=== PATIENT | female | born 1985 | race Caucasian/White ===

== ENCOUNTER 2017-02-07 16:15 | Emergency (ER) | payer OTHER ==
--- NOTE | 2017-02-07 17:58 | ED NURSING NOTES ---
Clinical Report - Nurses [facility] [address] [place] [address] 02/07/2017 16:16 Patient: MITCHELL DUARTE TRIAGE Triage time 16:Feb 07 2017. Acuity: LEVEL 3. Chief Complaint: NAUSEA and VOMITING. 16:27 02/07/17. Alert. SEPSIS SCREEN: Sepsis Screen. Negative (no infection suspected/documented). OSITO COMA SCORE: Osito Coma Scale: 15- eyes open spontaneously (4); best verbal response- oriented x 4 (5); best motor response- obeys commands (6). --16:27 Monse Moreno 16:16 02/07/17. BP: 138/93. HR: 90. RR: 16. O2 saturation: 97% on room air. Temp: 98.6 F (oral). Pain level now: 06/11. Additional comments: Pain in head. --16:27 Monse Moreno. Weight: 99.7 kg stated. Height/Length: 69 inches Per Patient. BMI: 32.5. --16:21 Monse Moreno. Medications Effexor XR Oral. --16:18 Monse Moreno. Medication/allergy information source: EMS. --16:27 Monse Moreno. Allergies None. --16:18 Monse Moreno. History Arrived by EMS. Historian: EMS and patient. Accompanied by (EMS). Primary physician ([facility]). This started today. Onset. (This AM). ( Patient reports nausea and vomiting starting this AM. Last drink last night. Denies hallucinations. Reports feeling shaky. Denies history of seizures, has been through withdrawal before. Went to detox in December.). The patient has had nausea and vomiting. The patient has had diarrhea. This has occurred only once. No constipation or abdominal pain. Treatment LITHOGRAPHIC PRESS OPERATOR APPRENTICE: None. EMS treatment LITHOGRAPHIC PRESS OPERATOR APPRENTICE verbally communicated. Finger stick glucose performed (67). BP: 158/100. HR: 98. RR: 14. O2 saturation: 97 % room air. ( Pt woke up with N/V. Last drink last night (6 tall beers). Hasn't been able to keep fluids down. History of alcohol abuse.). PAST MEDICAL HX: Immunizations: up-to-date. SOCIAL HX: Light tobacco smoker (cigarette)- less than 1/2 a pack per day. Alcohol use; consumes six beers a day. History of heavy drug use: marijuana. No recent travel. No known contact with a sick individual. NUTRITIONAL RISK ASSESSMENT: The nutritional risk assessment revealed no deficiencies. FUNCTIONAL ASSESSMENT: Functional assessment: no impairments noted. LEARNING NEEDS ASSESSMENT: The learning needs assessment revealed no barriers. FALL RISK ASSESSMENT: Fall risk assessment completed. Risk factors identified include nausea and dizziness. Fall interventions initiated. Patient placed on stretcher. Side rails up x2. Brakes on Bed in low position. Call light in reach of patient. Instructed not to get up without assistance. SKIN INTEGRITY ASSESSMENT: Skin integrity risk assessment completed. No skin integrity risk identified. --16:27 Monse Moreno. PROBLEMS: Anxiety Reaction. --16:18 Monse Moreno. Assessment The patient states feels the same. --16:27 Monse Moreno. Interventions ID band on patient. --16:27 Monse Moreno. PHYSICAL ASSESSMENT 16:28 02/07/17. To room via stretcher. GENERAL / NEURO / PSYCH: Alert. Oriented X 4. Appears anxious. HEENT: Mucous membranes are pink. RESPIRATORY: Respirations not labored. CVS: Capillary refill less than 2 seconds. GI / : Abdomen soft and nontender. Stool color normal. SKIN: Skin is warm. Skin is profusely diaphoretic. --16:28 Monse Moreno. NURSING PROGRESS NOTES 16:27 02/07/2017 Site #1 started via IV in the right antecubital space with an 20g angiocath, with aseptic technique and good blood return; one attempt. Blood drawn: rainbow set. Labeled in the presence of the patient and sent to the lab. Saline lock flushed with 10 mL saline (Done by Tyrell Phillips). --16:32 Monse Moreno 16:30 02/07/2017 Started bag #1 1000 mL IV Fluids IV NS (Saline); at 1000 mL/hr over 1 hour(s) via site #1 via IV pump. Allergies verified and confirmed 5 rights. IV patency established. IV site checked: no pain, redness, or swelling. IV flushed thoroughly pre- and post-medication administration. --16:33 Monse Mroeno 16:30 02/07/17. The plan of care for this patient has been created. alarm security or surveillance monitor, pulse oximeter and NIBP monitor placed on patient; monitor alarms on. Head of bed elevated. Reassurance given. Call light placed in reach. Side rails up x 2. Bed placed in lowest position. Brakes of bed on. Patient ready for evaluation- chart flagged and ED physician and LOW PRESSURE BOILER TENDER notified. --16:30 Monse Moreno 16:31 02/07/17. Two patient identifiers checked. --16:31 Monse Moreno 16:32 02/07/2017 Zofran (Ondansetron HCl) IVP 4 mg given over 1 minute(s) via site #1. IV patency established. IV site checked: no pain, redness, or swelling. IV flushed thoroughly pre- and post-medication administration. IVP given by RN (Given by ANNAMARIE Phillips). --16:34 Monse Moreno 17:21 02/07/17. BP: 127/83. HR: 78. O2 saturation: 98%. --17:21 Monse Moreno 17:35 02/07/2017 IV Fluids IV NS Discontinued: bag #1 completed upon discharge. Total amount infused: 1000 mL. IV patency established. IV site checked: no pain, redness, or swelling. IV flushed thoroughly. --18:35 Summer Maza R.N. 18:20 02/07/2017 Site #1 removed upon discharge. Catheter intact. Pressure dressing applied. --18:33 Summer Maza R.N. 18:00. Reassessment after fluids administered and medication administered. She reports no complaints and she is resting quietly. Overall patient status is improved- she states feels better. GI / : Denies abdominal pain, nausea or vomiting. --18:48 Summer Maza R.N. patient given ice chips 18:10. --18:49 Summer Maza R.N. 18:20 02/07/17. Pain level now: 0/10. --18:50 Summer Maza R.N. DISPOSITION / DISCHARGE Condition at departure: improved. ( vomiting and abd pain absent). Discharge instructions provided and reviewed with the patient. Reviewed medication(s) dosing and course information. Prescription(s) given to the patient (nixon celestin). Activity restrictions reviewed (do not return to work today). Work and school note given. Patient verbalized understanding. Written instructions provided in Vietnamese. The patient was discharged home. She left the Emergency Department ambulatory and via private vehicle. Cartridge Assembler driving (patiet d/c to waiting area to call friend for ride). --18:39 Summer Maza R.N. 18:20 02/07/17. BP: 140/86. HR: 79. RR: 18. O2 saturation: 99% on room air. Temp: 98.3 F (oral). --18:39 Summer Maza R.N. Departure time: 1821. --18:40 Summer Maza R.N. Locked/Released at 02/07/2017 18:53 by Summer Maza R.N.
--- NOTE | 2017-02-07 17:58 | ED ORDER SUMMARY ---
..... Patient: MITCHELL DUARTE OrderSheet [facility] VisitID: [id number] [place] [address] 31y, F Registration Date/Time: 02/07/2017 ORDER SHEET Weight: 99.7 kg (stated) Allergies: None GENERAL ORDERS: CBC w Diff Urgent (17:00 02/07/2017 HBivens A.R.N.P.) (Ack 17:03 OHernandez) (17:17 ASchmuck) CMP Urgent (17:00 02/07/2017 HBivens A.R.N.P.) (Ack 17:03 OHernandez) (17:17 ASchmuck) UA-Culture if indicated Urgent (17:00 02/07/2017 HBivens A.R.N.P.) (Ack 17:03 OHernandez) (17:05 OHernandez) Amylase Urgent (17:00 02/07/2017 HBivens A.R.N.P.) (Ack 17:03 OHernandez) (17:17 ASchmuck) Lipase Urgent (17:00 02/07/2017 HBivens A.R.N.P.) (Ack 17:03 OHernandez) (17:17 ASchmuck) Ethyl Alcohol Urgent (17:00 02/07/2017 HBivens A.R.N.P.) (Ack 17:04 OHernandez) (17:17 ASchmuck) Serum Qualitative Urgent (17:00 02/07/2017 HBivens A.R.N.P.) (Ack 17:03 OHernandez) (17:17 ASchmuck) MEDICATION ORDERS: IV FLUIDS: Zofran IV 4 mg (NOW) (16:29 02/07/2017 ASchmuck per protocol) (16:34 ASchmuck) IV NS with Normal Saline 1 Liter: initial bolus none -, then 1000 mL/hr for X1 (NOW); Everardo (16:32 02/07/2017 ASchm verbal order read back to HBivens A.R.N.P.) (16:33 ASchmuck) ORDER SHEET NOTES: [Electronically signed by Summer Maza R.N. (18:53 02/07/2017)] [Electronically signed by Rosaura Dunaway (21:51 02/07/2017)] [Electronically locked/signed by Summer Maza R.N. (18:53 02/07/2017)]
--- NOTE | 2017-02-07 17:58 | ED ORDER SUMMARY ---
..... Patient: MITCHELL DUARTE OrderSheet [facility] VisitID: [id number] [place] [address] 31y, F Registration Date/Time: 02/07/2017 ORDER SHEET Weight: 99.7 kg (stated) Allergies: None GENERAL ORDERS: CBC w Diff Urgent (17:00 02/07/2017 HBivens A.R.N.P.) (Ack 17:03 OHernandez) (17:17 ASchmuck) CMP Urgent (17:00 02/07/2017 HBivens A.R.N.P.) (Ack 17:03 OHernandez) (17:17 ASchmuck) UA-Culture if indicated Urgent (17:00 02/07/2017 HBivens A.R.N.P.) (Ack 17:03 OHernandez) (17:05 OHernandez) Amylase Urgent (17:00 02/07/2017 HBivens A.R.N.P.) (Ack 17:03 OHernandez) (17:17 ASchmuck) Lipase Urgent (17:00 02/07/2017 HBivens A.R.N.P.) (Ack 17:03 OHernandez) (17:17 ASchmuck) Ethyl Alcohol Urgent (17:00 02/07/2017 HBivens A.R.N.P.) (Ack 17:04 OHernandez) (17:17 ASchmuck) Serum Qualitative Urgent (17:00 02/07/2017 HBivens A.R.N.P.) (Ack 17:03 OHernandez) (17:17 ASchmuck) MEDICATION ORDERS: IV FLUIDS: Zofran IV 4 mg (NOW) (16:29 02/07/2017 ASchmuck per protocol) (16:34 ASchmuck) IV NS with Normal Saline 1 Liter: initial bolus none -, then 1000 mL/hr for X1 (NOW); Everardo (16:32 02/07/2017 ASchm verbal order read back to HBivens A.R.N.P.) (16:33 ASchmuck) ORDER SHEET NOTES: [Electronically signed by Summer Maza R.N. (18:53 02/07/2017)] [Electronically signed by Rosaura Dunaway (21:51 02/07/2017)] [Electronically locked/signed by Summer Maza R.N. (18:53 02/07/2017)]
--- NOTE | 2017-02-07 17:58 | ED CLINICAL REPORT ---
Clinical Report - Physicians/Mid Levels [facility] [address] [place] [address] 02/07/2017 16:16 Patient: MITCHELL DUARTE Time Seen: 16:27; initial patient contact, initial documentation, patient care assumed. Arrived- By ambulance. Historian- patient. HISTORY OF PRESENT ILLNESS Chief Complaint: VOMITING. This started today. No recent travel. She has had nausea. She has had severe vomiting. The vomiting has occurred numerous times and has been bilious. No feculent emesis, blood-tinged emesis, coffee-grounds emesis, frankly bloody emesis or unusually dark emesis. She has had diarrhea. This has occurred numerous times. It has been watery. No bloody, mucous containing or blood-tinged diarrhea. No black stools, bloody stools, abdominal pain, constipation or flank pain. No history of possible bad food exposure, known contact with a sick individual or change in routine. Has not recently been camping or on antibiotics. The illness is described as moderate. Similar symptoms previously: None. Recent medical care: Not recently seen/assessed. REVIEW OF SYSTEMS No fever, difficulty with urination, dark urine, chest pain or difficulty breathing. Denies current . All systems otherwise negative, except as recorded above. PAST HISTORY See nurses notes. PROBLEMS: Anxiety Reaction. --16:18 Monse Moreno. Alcoholism. SOCIAL HISTORY Light tobacco smoker. Heavy alcohol use; consumes five beers a day. Under the influence in E[place]D. No drug use. No recent travel. Is a local resident. FAMILY HISTORY Negative. ADDITIONAL NOTES The nursing notes have been reviewed with agreement regarding the chief complaint, HPI, ROS, PMH and patient medications and allergies. PHYSICAL EXAM Vital Signs: 02/07/2017 16:16 BP: 138/93. HR: 90. RR: 16. O2 saturation: 97%. Temp: 98.6 F. Pain level now: 10/10. Have been reviewed as normal and appear to be correct. Appearance: Alert. Oriented X3. No acute distress. Anxious. Eyes: Pupils equal, round and reactive to light. Eyes normal inspection. ENT: Nose normal. Pharynx normal. Neck: Normal inspection. Neck supple. CVS: Normal heart rate and rhythm. Heart sounds normal. Pulses normal. Respiratory: No respiratory distress. Breath sounds normal. Abdomen: Soft and nontender. Bowel sounds normal. No organomegaly. No mass. Mildly obese. Back: Normal inspection. Skin: Skin warm but moist. Normal skin color. No rash. Normal skin turgor. Profuse diaphoresis. Extremities: Extremities exhibit normal ROM. No lower extremity edema. Neuro: Oriented X 3. No motor deficit. No sensory deficit. LABS, X-RAYS, AND EKG Laboratory Tests: UA-Culture if indicated: (ANNABELLE: 02/07/2017 16:40) ( [facility] [place] [place] 02/07/2017 17:41) Final results Test Result Flag Units (Reference) URINE COLOR YELLOW URINE APPEARANCE CLEAR URINE GLUCOSE NEGATIVE (NEGATIVE) URINE BILIRUBIN 1+ (NEGATIVE) URINE BILIRUBIN ICTOTEST NEG (NEGATIVE) URINE KETONE 1+ (NEGATIVE) URINE SPECIFIC GRAVITY 1.025 (1.010-1.030) URINE PH 6.0 (5.0-8.0) URINE PROTEIN 1+ (NEGATIVE) URINE UROBILINOGEN 0.2 EU/dL (0.2-1.0) URINE NITRITE NEGATIVE (NEGATIVE) URINE BLOOD NEGATIVE (NEGATIVE) URINE LEUK ESTERASE NEGATIVE (NEGATIVE) URINE RBC 0-1 rbc/hpf (0-1) URINE WBC 0-1 wbc/hpf (0-1) URINE EPITHELIAL CELLS 1-3 EPI/hpf (0-5) URINE BACTERIA NONE SEEN (NONE SEEN) URINE COMMENT CULT NOT INDICATED URINE CULTURES ARE SET-UP BASED ON THE FOLLOWING CRITERIA:POSITIVE NITRITEPOSITIVE LEUKOCYTE ESTERASEGREATER THAN 10 WHITE BLOOD CELLSMODERATE (2+) OR GREATER BACTERIA Serum Qualitative: (ANNABELLE: 02/07/2017 16:32) ( [facility] [place] [place] 02/07/2017 17:24) Final results Test Result Flag Units (Reference) , SERUM NEGATIVE CBC w Diff: (ANNABELLE: 02/07/2017 16:32) ( [facility] 02/07/2017 17:15) Final results Test Result Flag Units (Reference) WHITE BLOOD COUNT 11.9 H K/uL (4.5-11.5) RED BLOOD COUNT 4.85 M/uL (4.00-5.20) HEMOGLOBIN 13.4 gm/dL (12.0-16.0) HEMATOCRIT 40.2 % (36.0-46.0) MEAN CELL VOLUME 83 fL (80-100) MEAN CORPUSCULAR HGB 28 pg (26-34) MEAN CORPUSCULAR HGB CONC 33 g/dL (31-37) RED CELL DISTRIBUTION WIDTH 13.5 % (11.6-14.8) PLATELET COUNT 203 K/uL (150-400) NEUTROPHIL % 82.6 H % (50-75) LYMPH % 10.2 L % (25-40) MONO % 5.4 % (3-14) EOSINOPHIL % 1.6 % (0-4) BASOPHIL % 0.2 % (0-2) CMP: (ANNABELLE: 02/07/2017 16:32) ( MsgRcvd 02/07/2017 17:41) Final results Test Result Flag Units (Reference) GLUCOSE 99 mg/dL (70-110) BUN 8 mg/dL (7-18) CREATININE 0.6 mg/dL (0.6-1.3) Estimated GFR >60 mL/min Estimated GFR- >60 mL/min Note: Persistent reduction over 3 months in eGFR<60 mL/min/1.73 m2 defines CKD. Patients with eGFR values>=60 mL/min/1.73 m2 may also have CKD if evidence ofpersistent proteinuria. Additional information may be foundat www.kidney.org. SODIUM 141 mmol/L (136-145) POTASSIUM 3.4 L mmol/L (3.5-5.1) CHLORIDE 103 mmol/L (98-107) CARBON DIOXIDE 23 mmol/L (21-32) CALCIUM 8.8 mg/dL (8.5-10.1) TOTAL PROTEIN 9.5 H g/dL (6.4-8.2) ALBUMIN 4.0 g/dL (3.3-5.0) BILIRUBIN, TOTAL 0.7 mg/dL (0.0-1.0) ALKALINE PHOSPHATASE 140 H U/L (46-116) AST (SGOT) 124 H U/L (15-37) ALT (SGPT) 103 H U/L (12-78) LIPASE 184 U/L (73-393) AMYLASE 52 U/L (25-115) ETHYL ALCOHOL <3 L mg/dL (3-10) . PROGRESS AND PROCEDURES Course of Care: 1743. pt smiling, no more diaphoresis, and stating she felt much better, discussed elevated liver enzymes and affect on liver with drinking, encouraged her to f/u and keep eye on liver. 02/07/2017 17:21 BP: 127/83. HR: 78. O2 saturation: 98%. Vital Signs: have been reviewed as normal and appear to be correct. Patient counseled in person regarding the patient's stable condition, test results and diagnosis. 17:43. Differential Diagnosis: I considered gastritis, peptic ulcer disease, gastroesophageal reflux disease, gastroparesis, Crohn's disease, small bowel obstruction, colonic obstruction, colon cancer, gastroenteritis, cholecystitis, pancreatitis, viral syndrome, enterocolitis, urinary tract infection, hepatitis, sepsis, drugs and as a possible cause of vomiting in this patient. This is a partial list of diagnoses considered. (alcohol abuse). Above considerations are based on history, physical exam, reassessment and laboratory data. Differential diagnosis was discussed with patient. Disposition: Discharged home in good and improved condition (17:58). Condition: good and stable. CLINICAL IMPRESSION Acute noninfectious gastroenteritis. INSTRUCTIONS Do not work today, tomorrow. Take clear liquids only (frequent sips) for the next 12 hours until better. May continue medications with sips only. Advance diet as tolerated. Avoid. No alcohol. Warnings: Further evaluation is necessary in order to recheck abnormal lab. It is very important to follow up with a physician. GENERAL WARNINGS: Return or contact your physician immediately if your condition worsens or changes unexpectedly, if not improving as expected, or if other problems arise. SPECIFICALLY, return if you develop pain in the abdomen or pelvis, fever, the inability to keep fluids down, blood in vomitus, blood in diarrhea, fainting or lightheadedness. Prescription Medications: Zofran 4 mg: Take 1 orally every six hours as needed for nausea/vomiting. Dispense ten (10). No refills. Substitution is permissible. Bentyl 20 mg tablets: take 1 orally every 6 hours as needed. Dispense thirty (30). No refills. Substitution is permissible. Follow-up: Follow up with your doctor in about two days even if well. Call for an appointment. Summary of care provided to patient. Understanding of the discharge instructions verbalized by patient. (Electronically signed by Rosaura Dunaway A.R.N.P. 02/07/2017 21:51)
--- NOTE | 2017-02-07 17:58 | ED NURSING NOTES ---
Clinical Report - Nurses [facility] [address] [place] [address] 02/07/2017 16:16 Patient: MITCHELL DUARTE TRIAGE Triage time 16:Feb 07 2017. Acuity: LEVEL 3. Chief Complaint: NAUSEA and VOMITING. 16:27 02/07/17. Alert. SEPSIS SCREEN: Sepsis Screen. Negative (no infection suspected/documented). OSITO COMA SCORE: Osito Coma Scale: 15- eyes open spontaneously (4); best verbal response- oriented x 4 (5); best motor response- obeys commands (6). --16:27 Monse Moreno 16:16 02/07/17. BP: 138/93. HR: 90. RR: 16. O2 saturation: 97% on room air. Temp: 98.6 F (oral). Pain level now: 06/11. Additional comments: Pain in head. --16:27 Monse Moreno. Weight: 99.7 kg stated. Height/Length: 69 inches Per Patient. BMI: 32.5. --16:21 Monse Moreno. Medications Effexor XR Oral. --16:18 Monse Moreno. Medication/allergy information source: EMS. --16:27 Monse Moreno. Allergies None. --16:18 Monse Moreno. History Arrived by EMS. Historian: EMS and patient. Accompanied by (EMS). Primary physician ([facility]). This started today. Onset. (This AM). ( Patient reports nausea and vomiting starting this AM. Last drink last night. Denies hallucinations. Reports feeling shaky. Denies history of seizures, has been through withdrawal before. Went to detox in December.). The patient has had nausea and vomiting. The patient has had diarrhea. This has occurred only once. No constipation or abdominal pain. Treatment EPIC AMBULATORY ANALYSTS: None. EMS treatment EPIC AMBULATORY ANALYSTS verbally communicated. Finger stick glucose performed (67). BP: 158/100. HR: 98. RR: 14. O2 saturation: 97 % room air. ( Pt woke up with N/V. Last drink last night (6 tall beers). Hasn't been able to keep fluids down. History of alcohol abuse.). PAST MEDICAL HX: Immunizations: up-to-date. SOCIAL HX: Light tobacco smoker (cigarette)- less than 1/2 a pack per day. Alcohol use; consumes six beers a day. History of heavy drug use: marijuana. No recent travel. No known contact with a sick individual. NUTRITIONAL RISK ASSESSMENT: The nutritional risk assessment revealed no deficiencies. FUNCTIONAL ASSESSMENT: Functional assessment: no impairments noted. LEARNING NEEDS ASSESSMENT: The learning needs assessment revealed no barriers. FALL RISK ASSESSMENT: Fall risk assessment completed. Risk factors identified include nausea and dizziness. Fall interventions initiated. Patient placed on stretcher. Side rails up x2. Brakes on Bed in low position. Call light in reach of patient. Instructed not to get up without assistance. SKIN INTEGRITY ASSESSMENT: Skin integrity risk assessment completed. No skin integrity risk identified. --16:27 Monse Moreno. PROBLEMS: Anxiety Reaction. --16:18 Monse Moreno. Assessment The patient states feels the same. --16:27 Monse Moreno. Interventions ID band on patient. --16:27 Monse Moreno. PHYSICAL ASSESSMENT 16:28 02/07/17. To room via stretcher. GENERAL / NEURO / PSYCH: Alert. Oriented X 4. Appears anxious. HEENT: Mucous membranes are pink. RESPIRATORY: Respirations not labored. CVS: Capillary refill less than 2 seconds. GI / : Abdomen soft and nontender. Stool color normal. SKIN: Skin is warm. Skin is profusely diaphoretic. --16:28 Monse Moreno. NURSING PROGRESS NOTES 16:27 02/07/2017 Site #1 started via IV in the right antecubital space with an 20g angiocath, with aseptic technique and good blood return; one attempt. Blood drawn: rainbow set. Labeled in the presence of the patient and sent to the lab. Saline lock flushed with 10 mL saline (Done by Tyrell Phillips). --16:32 Monse Moreno 16:30 02/07/2017 Started bag #1 1000 mL IV Fluids IV NS (Saline); at 1000 mL/hr over 1 hour(s) via site #1 via IV pump. Allergies verified and confirmed 5 rights. IV patency established. IV site checked: no pain, redness, or swelling. IV flushed thoroughly pre- and post-medication administration. --16:33 Monse Moreno 16:30 02/07/17. The plan of care for this patient has been created. cafeteria monitor, pulse oximeter and NIBP monitor placed on patient; monitor alarms on. Head of bed elevated. Reassurance given. Call light placed in reach. Side rails up x 2. Bed placed in lowest position. Brakes of bed on. Patient ready for evaluation- chart flagged and ED physician and GATE MANAGER notified. --16:30 Monse Moreno 16:31 02/07/17. Two patient identifiers checked. --16:31 Monse Moreno 16:32 02/07/2017 Zofran (Ondansetron HCl) IVP 4 mg given over 1 minute(s) via site #1. IV patency established. IV site checked: no pain, redness, or swelling. IV flushed thoroughly pre- and post-medication administration. IVP given by RN (Given by ANNAMARIE Phillips). --16:34 Monse Moreno 17:21 02/07/17. BP: 127/83. HR: 78. O2 saturation: 98%. --17:21 Monse Moreno 17:35 02/07/2017 IV Fluids IV NS Discontinued: bag #1 completed upon discharge. Total amount infused: 1000 mL. IV patency established. IV site checked: no pain, redness, or swelling. IV flushed thoroughly. --18:35 Summer Maza R.N. 18:20 02/07/2017 Site #1 removed upon discharge. Catheter intact. Pressure dressing applied. --18:33 Summer Maza R.N. 18:00. Reassessment after fluids administered and medication administered. She reports no complaints and she is resting quietly. Overall patient status is improved- she states feels better. GI / : Denies abdominal pain, nausea or vomiting. --18:48 Summer Maza R.N. patient given ice chips 18:10. --18:49 Summer Maza R.N. 18:20 02/07/17. Pain level now: 0/10. --18:50 Summer Maza R.N. DISPOSITION / DISCHARGE Condition at departure: improved. ( vomiting and abd pain absent). Discharge instructions provided and reviewed with the patient. Reviewed medication(s) dosing and course information. Prescription(s) given to the patient (nixon celestin). Activity restrictions reviewed (do not return to work today). Work and school note given. Patient verbalized understanding. Written instructions provided in Bengali. The patient was discharged home. She left the Emergency Department ambulatory and via private vehicle. Binder Folder Operator driving (patiet d/c to waiting area to call friend for ride). --18:39 Summer Maza R.N. 18:20 02/07/17. BP: 140/86. HR: 79. RR: 18. O2 saturation: 99% on room air. Temp: 98.3 F (oral). --18:39 Summer Maza R.N. Departure time: 1821. --18:40 Summer Maza R.N. Locked/Released at 02/07/2017 18:53 by Summer Maza R.N.
--- NOTE | 2017-02-07 21:51 | ED MAR SUMMARY ---
..... Medication Administration Record [facility] [address] [place] [address] Patient: MITCHELL DUARTE Visit ID: [id number] 31y, F Weight: 99.7 kg Height/Length: 69 in BMI: 32.5 ALLERGIES: None Start 16:30 02/07/2017 Monse Moreno,, Stop 17:35 02/07/2017 Summer Maza R.N. Medication Administered: IV NS (SALINE), Dose: IV Fluids over 1 hour(s), Rate: 1000 mL/hr, Dispensed: 1000 mL bag, Site: #1 right AC. Medication Ordered: IV NS with Normal Saline 1 Liter: initial bolus none -, then 1000 mL/hr for X1 (NOW); Everardo. Given 16:32 02/07/2017 Monse Moreno, Medication Administered: ZOFRAN [IVP] (ONDANSETRON HCL), Dose: 4 mg IVP over 1 minute(s), Site: #1 right AC. Medication Ordered: Zofran IV 4 mg (NOW).
--- NOTE | 2017-02-07 21:51 | ED MAR SUMMARY ---
..... Medication Administration Record [facility] [address] [place] [address] Patient: MITCHELL DUARTE Visit ID: [id number] 31y, F Weight: 99.7 kg Height/Length: 69 in BMI: 32.5 ALLERGIES: None Start 16:30 02/07/2017 Monse Moreno,, Stop 17:35 02/07/2017 Summer Maza R.N. Medication Administered: IV NS (SALINE), Dose: IV Fluids over 1 hour(s), Rate: 1000 mL/hr, Dispensed: 1000 mL bag, Site: #1 right AC. Medication Ordered: IV NS with Normal Saline 1 Liter: initial bolus none -, then 1000 mL/hr for X1 (NOW); Everardo. Given 16:32 02/07/2017 Monse Moreno, Medication Administered: ZOFRAN [IVP] (ONDANSETRON HCL), Dose: 4 mg IVP over 1 minute(s), Site: #1 right AC. Medication Ordered: Zofran IV 4 mg (NOW).
--- NOTE | 2017-02-07 21:51 | ED MED RECONCILIATION SUMMARY ---
Patient: MITCHELL DUARTE Medication Reconciliation Report [facility] VisitID: [id number] [address] [place] [address] 31y, F Registration Date/Time: 02/07/2017 Weight: 99.7 kg Height/Length: 69 in. BMI: 32.5 ALLERGIES: None The patient's Home Medications are listed below: THE FOLLOWING MEDICATIONS NEED TO BE RECONCILED: Effexor XR Oral The source(s) of the original Home Medication information: EMS The following Medications were given to the patient in the Emergency Department: IV NS IV Fluids bolus 0, then 1000 mL/hr, administered: 02/07/2017 4:30:00 PM Zofran [IVP] IVP 4 mg, administered: 02/07/2017 4:32:00 PM The following Medications were prescribed to the patient: Zofran 4 mg: Take 1 orally every six hours as needed for nausea/vomiting. Dispense ten (10). No refills. Substitution is permissible. -- Rosaura Dunaway A.RConchaN.PConcha Bentyl 20 mg tablets: take 1 orally every 6 hours as needed. Dispense thirty (30). No refills. Substitution is permissible. -- Rosaura Dunaway A.R.N.P.
--- NOTE | 2017-02-07 21:51 | ED MED RECONCILIATION SUMMARY ---
Patient: MITCHELL DUARTE Medication Reconciliation Report [facility] VisitID: [id number] [address] [place] [address] 31y, F Registration Date/Time: 02/07/2017 Weight: 99.7 kg Height/Length: 69 in. BMI: 32.5 ALLERGIES: None The patient's Home Medications are listed below: THE FOLLOWING MEDICATIONS NEED TO BE RECONCILED: Effexor XR Oral The source(s) of the original Home Medication information: EMS The following Medications were given to the patient in the Emergency Department: IV NS IV Fluids bolus 0, then 1000 mL/hr, administered: 02/07/2017 4:30:00 PM Zofran [IVP] IVP 4 mg, administered: 02/07/2017 4:32:00 PM The following Medications were prescribed to the patient: Zofran 4 mg: Take 1 orally every six hours as needed for nausea/vomiting. Dispense ten (10). No refills. Substitution is permissible. -- Rosaura Dunaway A.RConchaN.PConcha Bentyl 20 mg tablets: take 1 orally every 6 hours as needed. Dispense thirty (30). No refills. Substitution is permissible. -- Rosaura Dunaway A.R.N.P.
--- NOTE | 2017-02-07 21:51 | ED DISCHARGE INSTRUCTIONS ---
Patient: MITCHELL DUARTE General Instructions [facility] VisitID: [id number] [place] [address] 31y, F Registration Date/Time: 02/07/2017 Acute noninfectious gastroenteritis. INSTRUCTIONS Do not work today, tomorrow. Take clear liquids only (frequent sips) for the next 12 hours until better. May continue medications with sips only. Advance diet as tolerated. Avoid. No alcohol. Warnings: Further evaluation is necessary in order to recheck abnormal lab. It is very important to follow up with a physician. GENERAL WARNINGS: Return or contact your physician immediately if your condition worsens or changes unexpectedly, if not improving as expected, or if other problems arise. SPECIFICALLY, return if you develop pain in the abdomen or pelvis, fever, the inability to keep fluids down, blood in vomitus, blood in diarrhea, fainting or lightheadedness. Prescription Medications: Zofran 4 mg: Take 1 orally every six hours as needed for nausea/vomiting. Dispense ten (10). No refills. Substitution is permissible. Bentyl 20 mg tablets: take 1 orally every 6 hours as needed. Dispense thirty (30). No refills. Substitution is permissible. Follow-up: Follow up with your doctor in about two days even if well. Call for an appointment. Summary of care provided to patient. Understanding of the discharge instructions verbalized by patient. ADDITIONAL INFORMATION Gastroenteritis [Non-Infectious, 6 Yr-Adult] Your symptoms today are coming from the intestinal tract. This may occur as a result of food sensitivity, inflammation of the GI tract, medicines, stress or other causes not related to infection. This may last from 1-3 days. Antibiotics are not effective, but simple home treatment will be helpful. Home Care: If symptoms are severe, rest at home for the next 24 hours. You may use acetaminophen (Tylenol) or ibuprofen (Motrin, Advil) to control fever, unless another medicine was prescribed. [NOTE: If you have chronic liver or kidney disease or ever had a stomach ulcer or GI bleeding, talk with your doctor before using these medicines.] (Aspirin should never be used in anyone under 18 years of age who is ill with a fever. It may cause severe liver damage.) Avoid tobacco and alcohol use, which may make your symptoms worse. If medicines for diarrhea or vomiting were prescribed, take only as directed. Once vomiting stops, then follow these guidelines: During The First 12-24 Hours follow the diet below: gingerale, mineral water (plain or flavored), decaffeinated tea and coffee. During The Next 24 Hours you may add the following to the above: DURING THE NEXT 24 HOURS Gradually resume a normal diet, as you feel better and your symptoms lessen. Follow Up with your doctor as advised if you are not improving over the next 2-3 days. If a stool (diarrhea) sample was taken, you may call in 2 days (or as directed) for the results. Get Prompt Medical Attention if any of the following occur: Increasing abdominal pain or constant lower right abdominal pain Continued vomiting (unable to keep liquids down) Frequent diarrhea (more than 5 times a day) Blood in vomit or stool (black or red color) Reduced oral intake Dark urine, reduced urine output Weakness, dizziness, fainting Drowsiness, confusion, stiff neck or seizure Fever of 100.4F (38C) or higher, or as directed by your healthcare provider New rash Clear Liquid Diet Clear liquids are any liquid that you can see through as well as those that are very easy to digest. This is used while the body is recovering from irritation or infection of the stomach or intestinal tract. It may also be used before special procedures or surgery. This diet is to be used no more than three days. You may include the following items. Adults Adults should drink a total of 23 quarts of liquid per day. It may be easier to drink small frequent servings rather than a few large ones. Liquids can include: Fruit juices.Strained orange juice or lemonade (no pulp), apple, grape and cranberry juice, clear fruit drinks, sports drinks Beverages.Sport drinks, sodas, mineral water (plain or flavored), tea, black coffee, liquid gelatin (add twice the recommended amount of water) Soups.Clear broth, consomm, bouillon Desserts.Plain gelatin, popsicles, fruit juice bars Children Over 2 years old The following liquids are acceptable for children over age 2: Fruit juices.Strained orange juice or lemonade (no pulp), apple, grape and cranberry juice, clear fruit drinks Beverages. Sports drinks, sodas, mineral water (plain or flavored), tea, liquid gelatin (add twice the recommended amount of water) Soups. Clear broth, consomm, bouillon Desserts. Plain gelatin, popsicles, fruit juice bars Children under 2 years old Oral rehydration fluids such are available at drug stores and most grocery stores without a prescription. [place] Diet A bland diet is used for patients with an upset stomach. It consists of foods that are mild and easy to digest. It is better to eat small frequent meals rather than three large meals a day. BEVERAGES OK: Fruit juices, non-caffeinated teas and coffee, non-carbonated kirkpatrick AVOID: Carbonated beverage, caffeinated tea and coffee, all alcoholic beverages BREAD OK: Refined white, wheat or rye bread, oriana or soda crackers, Jackelyn toast, plain rolls, bagels AVOID: Whole-grain bread CEREAL OK: Refined cereals: cooked or ready to eat AVOID: Whole grain cereals and granola, or those containing bran, seeds or nuts DESSERTS OK: Peanut butter and all others except those to "avoid" AVOID: Chocolate, cocoa, coconut, popcorn, nuts, seeds, jam, marmalade FRUITS OK: Canned, cooked, frozen or fresh fruits without seeds or tough skin AVOID: Olives, skin and seeds of fruit MEATS OK: All fresh or preserved meat, fish and fowl AVOID: Any that are prepared with those spices to "avoid" CHEESE & EGGS OK: Eggs, cottage cheese, cream cheese, other cheeses AVOID: All cheeses made with those spices to "avoid" POTATOES & PASTA OK: Potato, rice, macaroni, noodles, spaghetti AVOID: None SOUPS OK: All soups without heavy seasoning AVOID: Soups made with those spices to "avoid" VEGETABLES OK: Canned, cooked, fresh or frozen mildly flavored vegetables without seeds, skins or coarse fiber AVOID: Vegetables prepared with those spices to "avoid"; skin and seeds of vegetables and those with coarse fiber SPICES OK: Salt, lemon and [place] juice, vinegar, all extracts, marco antonio, cinnamon, thyme, mace, allspice, paprika AVOID: [place] powder, cloves, pepper, seed spices, garlic, gravy pickles, highly seasoned salad dressings Clear Liquid Diet Clear liquids are any liquid that you can see through as well as those that are very easy to digest. This is used while the body is recovering from irritation or infection of the stomach or intestinal tract. It may also be used before special procedures or surgery. This diet is to be used no more than three days. You may include the following items. Adults Adults should drink a total of 23 quarts of liquid per day. It may be easier to drink small frequent servings rather than a few large ones. Liquids can include: Fruit juices.Strained orange juice or lemonade (no pulp), apple, grape and cranberry juice, clear fruit drinks, sports drinks Beverages.Sport drinks, sodas, mineral water (plain or flavored), tea, black coffee, liquid gelatin (add twice the recommended amount of water) Soups.Clear broth, consomm, bouillon Desserts.Plain gelatin, popsicles, fruit juice bars Children Over 2 years old The following liquids are acceptable for children over age 2: Fruit juices.Strained orange juice or lemonade (no pulp), apple, grape and cranberry juice, clear fruit drinks Beverages. Sports drinks, sodas, mineral water (plain or flavored), tea, liquid gelatin (add twice the recommended amount of water) Soups. Clear broth, consomm, bouillon Desserts. Plain gelatin, popsicles, fruit juice bars Children under 2 years old Oral rehydration fluids such are available at drug stores and most grocery stores without a prescription. Ondansetron Oral disintegrating tablet What is this medicine? ONDANSETRON (on NEERAJ se nirmal) is used to treat nausea and vomiting caused by chemotherapy. It is also used to prevent or treat nausea and vomiting after surgery. How should I use this medicine? These tablets are made to dissolve in the mouth. Do not try to push the tablet through the foil backing. With dry hands, peel away the foil backing and gently remove the tablet. Place the tablet in the mouth and allow it to dissolve, then swallow. While you may take these tablets with water, it is not necessary to do so. Talk to your fixture repairer fabricator regarding the use of this medicine in children. Special care may be needed. What side effects may I notice from receiving this medicine? Side effects that you should report to your doctor or health personal care assistant as soon as possible: allergic reactions like skin rash, itching or hives, swelling of the face, lips, or tongue breathing problems dizziness fast or irregular heartbeat feeling faint or lightheaded, falls fever and chills swelling of the hands and feet tightness in the chest Side effects that usually do not require medical attention (report to your doctor or health personal care assistant if they continue or are bothersome): constipation or diarrhea headache What may interact with this medicine? Do not take this medicine with any of the following medications: -apomorphine -cisapride -dofetilide -dronedarone -pimozide -thioridazine -ziprasidone This medicine may also interact with the following medications: -carbamazepine -phenytoin -rifampicin -tramadol -other medicines that prolong the QT interval (cause an abnormal heart rhythm) What if I miss a dose? If you miss a dose, take it as soon as you can. If it is almost time for your next dose, take only that dose. Do not take double or extra doses. Where should I keep my medicine? Keep out of the reach of children. Store between 2 and 30 degrees C (36 and 86 degrees F). Throw away any unused medicine after the expiration date. What should I tell my health care provider before I take this medicine? They need to know if you have any of these conditions: heart disease history of irregular heartbeat liver disease low levels of magnesium or potassium in the blood an unusual or allergic reaction to ondansetron, granisetron, other medicines, foods, dyes, or preservatives or trying to get breast-feeding What should I watch for while using this medicine? Check with your doctor or health personal care assistant as soon as you can if you have any sign of an allergic reaction. Dicyclomine Hydrochloride Oral tablet What is this medicine? DICYCLOMINE (dye ISIDRO [place]) is used to treat bowel problems including irritable bowel syndrome. How should I use this medicine? Take this medicine by mouth with a glass of water. Follow the directions on the prescription label. It is best to take this medicine on an empty stomach, 30 minutes to 1 hour before meals. Take your medicine at regular intervals. Do not take your medicine more often than directed. Talk to your fixture repairer fabricator regarding the use of this medicine in children. Special care may be needed. While this drug may be prescribed for children as young as 6 months of age for selected conditions, precautions do apply. Patients over 65 years old may have a stronger reaction and need a smaller dose. What side effects may I notice from receiving this medicine? Side effects that you should report to your doctor or health personal care assistant as soon as possible: agitation, nervousness, confusion difficulty swallowing dizziness, drowsiness fast or slow heartbeat hallucinations pain or difficulty passing urine Side effects that usually do not require medical attention (report to your doctor or health personal care assistant if they continue or are bothersome): constipation headache nausea or vomiting sexual difficulty What may interact with this medicine? amantadine antacids benztropine digoxin disopyramide medicines for allergies, colds and breathing difficulties medicines for alzheimer's disease medicines for anxiety or sleeping problems medicines for depression or psychotic disturbances medicines for diarrhea medicines for pain metoclopramide tegaserod What if I miss a dose? If you miss a dose, take it as soon as you can. If it is almost time for your next dose, take only that dose. Do not take double or extra doses. Where should I keep my medicine? Keep out of the reach of children. Store at room temperature below 30 degrees C (86 degrees F). Protect from light. Throw away any unused medicine after the expiration date. What should I tell my health care provider before I take this medicine? They need to know if you have any of these conditions: difficulty passing urine esophagus problems or heartburn glaucoma heart disease, or previous heart attack myasthenia gravis prostate trouble stomach infection, or obstruction ulcerative colitis an unusual or allergic reaction to dicyclomine, other medicines, foods, dyes, or preservatives or trying to get breast-feeding What should I watch for while using this medicine? You may get drowsy, dizzy, or have blurred vision. Do not drive, use machinery, or do anything that needs mental alertness until you know how this medicine affects you. To reduce the risk of dizzy or fainting spells, do not sit or stand up quickly, especially if you are an older patient. Alcohol can make you more drowsy, avoid alcoholic drinks. Stay out of bright light and wear sunglasses if this medicine makes your eyes more sensitive to light. Avoid extreme heat (hot tubs, saunas). This medicine can cause you to sweat less than normal. Your body temperature could increase to dangerous levels, which may lead to heat stroke. Antacids can stop this medicine from working. If you get an upset stomach and want to take an antacid, make sure there is an interval of at least 1 to 2 hours before or after you take this medicine. Your mouth may get dry. Chewing sugarless gum or sucking hard candy, and drinking plenty of water may help. Contact your doctor if the problem does not go away or is severe. You have been given the following additional information: Gastroenteritis, Non-Infectious (Child) (Adult) Diet, Clear Liquid Diet, [place] (Adult) Diet, Clear Liquid Ondansetron Oral disintegrating tablet Dicyclomine Hydrochloride Oral tablet Do not work today, tomorrow. (Electronically signed by Rosaura Dunaway A.R.N.P. 02/07/2017 21:51)
== END 2017-02-07 18:22 | disposition home or self-care (01) ==
LOC: ED SRH 16:15
DX: K52.9 Noninfective gastroenteritis and colitis, unspecified (principal); Z79.899 Other long term (current) drug therapy; F17.210 Nicotine dependence, cigarettes, uncomplicated
CPT/HCPCS: 90004; 90100; 92010; 92235; 92530; 95059; 98428

== ENCOUNTER 2017-03-10 10:37 | Emergency (ER) | payer OTHER ==
--- NOTE | 2017-03-10 12:15 | ED CLINICAL REPORT ---
Clinical Report - Physicians/Mid Levels [facility] [address] [place] [address] 03/10/2017 10:38 Patient: MITCHELL DUARTE Time Seen: 120Mar 10 2017. Arrived- By ambulance. Historian- patient and EMS personnel. HISTORY OF PRESENT ILLNESS Chief Complaint: Panic attack. (patient reports while at [employer] started having panic attack Hyperventilating, she do not take her nighttime medications as as she was drinking and did not recall taking them. Patient has had a history of similar panic attack. Denies any shortness of breath or chest pain. Patient's symptoms have largely resolved. She has no complaints now currently in the emergency department. Patient is an adamant drinker, 324 ounce beers daily.). REVIEW OF SYSTEMS All systems otherwise negative, except as recorded above. SOCIAL HISTORY Current every day light tobacco smoker. Heavy alcohol use; consumes beer daily. Last drink was less than 24 hours ago. No drug use. ADDITIONAL NOTES The nursing notes have been reviewed. PHYSICAL EXAM Vital Signs: 03/10/2017 10:48 BP: 152/91. HR: 110. RR: 32. O2 saturation: 100%. Temp: 97.7 F. Appearance: Alert. No acute distress. Does not appear to be anxious. CVS: Heart sounds normal. Pulses normal. Respiratory: Breath sounds normal. Chest nontender. Extremities: Normal inspection. Extremities atraumatic. Neuro: Oriented X 3. No motor deficit. No sensory deficit. PROGRESS AND PROCEDURES Course of Care: upon my arrival to the there are patient sitting in a dark room,, and has no concerns or complaints. Her symptoms have improved. She is in no distress. Understands need to follow up for alcohol abuse and treatment, she is willing to do so, and will attempt to find placement, she was given paperwork to help with such. Patient did not require any medications, patient will call for a ride. 03/10/2017 11:53 BP: 147/84. HR: 97. RR: 20. O2 saturation: 99%. Patient is stable. Disposition: Discharged. Condition: good. CLINICAL IMPRESSION Substance dependence problems: dependence on alcohol. Anxiety reaction. INSTRUCTIONS (take your meds as prescribed, alcohol is a depressant, and a substance that appears to be of abuse to you. Please strongly consider therapy/ : please call for help). OTC Medications: Take OTC medications according to label instructions. Available over the counter. Acetaminophen (available over the counter): take according to label instructions. Motrin (available over the counter): take according to label instructions. (Electronically signed by Lona Zelaya P.A.-C 03/10/2017 12:29)
--- NOTE | 2017-03-10 12:15 | ED CLINICAL REPORT ---
Clinical Report - Physicians/Mid Levels [facility] [address] [place] [address] 03/10/2017 10:38 Patient: MITCHELL DUARTE Time Seen: 120Mar 10 2017. Arrived- By ambulance. Historian- patient and EMS personnel. HISTORY OF PRESENT ILLNESS Chief Complaint: Panic attack. (patient reports while at [employer] started having panic attack Hyperventilating, she do not take her nighttime medications as as she was drinking and did not recall taking them. Patient has had a history of similar panic attack. Denies any shortness of breath or chest pain. Patient's symptoms have largely resolved. She has no complaints now currently in the emergency department. Patient is an adamant drinker, 324 ounce beers daily.). REVIEW OF SYSTEMS All systems otherwise negative, except as recorded above. SOCIAL HISTORY Current every day light tobacco smoker. Heavy alcohol use; consumes beer daily. Last drink was less than 24 hours ago. No drug use. ADDITIONAL NOTES The nursing notes have been reviewed. PHYSICAL EXAM Vital Signs: 03/10/2017 10:48 BP: 152/91. HR: 110. RR: 32. O2 saturation: 100%. Temp: 97.7 F. Appearance: Alert. No acute distress. Does not appear to be anxious. CVS: Heart sounds normal. Pulses normal. Respiratory: Breath sounds normal. Chest nontender. Extremities: Normal inspection. Extremities atraumatic. Neuro: Oriented X 3. No motor deficit. No sensory deficit. PROGRESS AND PROCEDURES Course of Care: upon my arrival to the there are patient sitting in a dark room,, and has no concerns or complaints. Her symptoms have improved. She is in no distress. Understands need to follow up for alcohol abuse and treatment, she is willing to do so, and will attempt to find placement, she was given paperwork to help with such. Patient did not require any medications, patient will call for a ride. 03/10/2017 11:53 BP: 147/84. HR: 97. RR: 20. O2 saturation: 99%. Patient is stable. Disposition: Discharged. Condition: good. CLINICAL IMPRESSION Substance dependence problems: dependence on alcohol. Anxiety reaction. INSTRUCTIONS (take your meds as prescribed, alcohol is a depressant, and a substance that appears to be of abuse to you. Please strongly consider therapy/ : please call for help). OTC Medications: Take OTC medications according to label instructions. Available over the counter. Acetaminophen (available over the counter): take according to label instructions. Motrin (available over the counter): take according to label instructions. (Electronically signed by Lona Zelaya P.A.-C 03/10/2017 12:29)
--- NOTE | 2017-03-10 12:16 | ED NURSING NOTES ---
Clinical Report - Nurses [facility] [address] [place] [address] 03/10/2017 10:38 Patient: MITCHELL DUARTE TRIAGE Triage time 1040. Acuity: LEVEL 4. Chief Complaint: (Pt in c/o panic attack while at [facility]. Pt states she mised her effexor dose yesterday and drank last night). --10:52 Laure Briggs R.N. 10:48 03/10/17. BP: 152/91. HR: 110. RR: 32. O2 saturation: 100%. Temp: 97.7 F. Pain level now 0/10. --10:52 Laure Briggs R.N. Weight: 99.7 kg stated. Height/Length: 69 inches Per Patient. BMI: 32.5. --10:48 Laure Briggs R.N. Medications Effexor XR Oral. --10:50 Laure Briggs R.N. Allergies None. --10:50 Laure Briggs R.N. History Arrived by EMS. Historian: patient. Unaccompanied. Primary physician (stefan castaneda [place]). Onset: today. She has had anxiety. ( is tearful and having nausea/vomiting). PAST MEDICAL HX: Last normal menstrual period- 03/01. SOCIAL HX: Light tobacco smoker (cigarette)- less than 1/2 a pack per day. Heavy alcohol use. No drug use. --10:52 Laure Briggs R.N. PROBLEMS: Gastroenteritis. Alcoholism. Anxiety Reaction. Alcohol Withdrawal. Vomiting. --10:49 Laure Briggs R.N. ADDITIONAL SURGERIES: Tonsillectomy. --10:49 Laure Briggs R.N. Interventions ID band on patient. To treatment room. --10:52 Laure Briggs R.N. PHYSICAL ASSESSMENT 10:40. To room via stretcher. Patient gowned. GENERAL / NEURO / PSYCH: Alert. Oriented X 4. Patient's mood/affect appears tearful. Patient appears well-nourished and neat and clean. RESPIRATORY: ( hyperventilating - but occasionally attempting to slow breathing down). CVS: Capillary refill less than 2 seconds. GI / : Emesis noted. Abdomen soft. SKIN: Skin is warm and dry. --10:54 Laure Briggs R.N. NURSING PROGRESS NOTES 10:47 03/10/2017 Zofran ODT (Ondansetron) PO 4 mg given. --10:48 Laure Briggs R.N. 10:40. Patient gowned. Head of bed elevated. Reassurance given. Call light placed in reach. Side rails up. Bed placed in lowest position. Patient ready for evaluation. --10:53 Laure Briggs R.N. 11:13 03/10/2017 Ativan (LORazepam) PO Tablets 0.5 mg given. Allergies verified, confirmed 5 rights and sedative warning given to the patient. --11:13 Laure Briggs R.N. 11:13 03/10/17. ( discussed case with ABRIL, meds ordered and given). --11:13 Laure Briggs R.N. 11:30 resting quietly in darkened room, not crying and no more emesis noted. --11:30 Laure Briggs R.N. 11:50 pt states she is "doing better". --11:49 Laure Briggs R.N. 11:53 03/10/17. BP: 147/84. HR: 97. RR: 20. O2 saturation: 99%. --11:54 Tre David, ER Tech1 12:10. ( Pt given phone to call [facility] to pick her up). --12:48 Laure Briggs R.N. DISPOSITION / DISCHARGE 12:20. Condition at departure: improved and stable. No learning barriers present. Discharge instructions provided and reviewed with the patient. Reviewed medication(s) (tylenol or motrin for pain, take home meds as directed). Reviewed referrals (given detox information). Patient verbalized understanding. Written instructions provided in Lebanese. The patient was discharged home and accompanied by milled rubber tender. She left the Emergency Department ambulatory and via private vehicle. [employer] driving. --12:48 Laure Briggs R.N. 12:20 03/10/17. BP: 140/80. HR: 88. RR: 20. O2 saturation: 97%. Temp: deferred. Pain level now: 0/10. --12:48 Laure Briggs R.N. Locked/Released at 03/10/2017 12:49 by Laure Briggs R.N.
--- NOTE | 2017-03-10 12:16 | ED ORDER SUMMARY ---
..... Patient: MITCHELL DUARTE OrderSheet [facility] VisitID: [id number] [address] [place] [address] 32y, F Registration Date/Time: 03/10/2017 ORDER SHEET Weight: 99.7 kg (stated) Allergies: None GENERAL ORDERS: MEDICATION ORDERS: Zofran ODT PO 4 mg (NOW) (10:47 03/10/2017 DDean R.N. per protocol) (10:48 DDean R.N.) Ativan PO 0.5 mg (HIGH ALERT MEDICATION, NOW) (11:12 03/10/2017 DDean R.N. verbal order read back to Micheal SUTHERLAND) (11:13 DDean R.N.) IV FLUIDS: ORDER SHEET NOTES: [Electronically signed by Lona Zelaya P.A.-C (12:29 03/10/2017)] [Electronically signed by Laure Briggs R.N. (12:49 03/10/2017)] [Electronically locked/signed by Laure Briggs R.N. (12:49 03/10/2017)]
--- NOTE | 2017-03-10 12:16 | ED NURSING NOTES ---
Clinical Report - Nurses [facility] [address] [place] [address] 03/10/2017 10:38 Patient: MITCHELL DUARTE TRIAGE Triage time 1040. Acuity: LEVEL 4. Chief Complaint: (Pt in c/o panic attack while at [facility]. Pt states she mised her effexor dose yesterday and drank last night). --10:52 Laure Briggs R.N. 10:48 03/10/17. BP: 152/91. HR: 110. RR: 32. O2 saturation: 100%. Temp: 97.7 F. Pain level now 0/10. --10:52 Laure Briggs R.N. Weight: 99.7 kg stated. Height/Length: 69 inches Per Patient. BMI: 32.5. --10:48 Laure Briggs R.N. Medications Effexor XR Oral. --10:50 Laure Briggs R.N. Allergies None. --10:50 Laure Briggs R.N. History Arrived by EMS. Historian: patient. Unaccompanied. Primary physician (stefan castaneda boel[place]). Onset: today. She has had anxiety. ( is tearful and having nausea/vomiting). PAST MEDICAL HX: Last normal menstrual period- 03/01. SOCIAL HX: Light tobacco smoker (cigarette)- less than 1/2 a pack per day. Heavy alcohol use. No drug use. --10:52 Laure Briggs R.N. PROBLEMS: Gastroenteritis. Alcoholism. Anxiety Reaction. Alcohol Withdrawal. Vomiting. --10:49 Laure Briggs R.N. ADDITIONAL SURGERIES: Tonsillectomy. --10:49 Laure Briggs R.N. Interventions ID band on patient. To treatment room. --10:52 Laure Briggs R.N. PHYSICAL ASSESSMENT 10:40. To room via stretcher. Patient gowned. GENERAL / NEURO / PSYCH: Alert. Oriented X 4. Patient's mood/affect appears tearful. Patient appears well-nourished and neat and clean. RESPIRATORY: ( hyperventilating - but occasionally attempting to slow breathing down). CVS: Capillary refill less than 2 seconds. GI / : Emesis noted. Abdomen soft. SKIN: Skin is warm and dry. --10:54 Laure Briggs R.N. NURSING PROGRESS NOTES 10:47 03/10/2017 Zofran ODT (Ondansetron) PO 4 mg given. --10:48 Laure Briggs R.N. 10:40. Patient gowned. Head of bed elevated. Reassurance given. Call light placed in reach. Side rails up. Bed placed in lowest position. Patient ready for evaluation. --10:53 Laure Briggs R.N. 11:13 03/10/2017 Ativan (LORazepam) PO Tablets 0.5 mg given. Allergies verified, confirmed 5 rights and sedative warning given to the patient. --11:13 Laure Briggs R.N. 11:13 03/10/17. ( discussed case with ABRIL, meds ordered and given). --11:13 Laure Briggs R.N. 11:30 resting quietly in darkened room, not crying and no more emesis noted. --11:30 Laure Briggs R.N. 11:50 pt states she is "doing better". --11:49 Laure Briggs R.N. 11:53 03/10/17. BP: 147/84. HR: 97. RR: 20. O2 saturation: 99%. --11:54 Tre David, ER Tech1 12:10. ( Pt given phone to call [facility] to pick her up). --12:48 Laure Briggs R.N. DISPOSITION / DISCHARGE 12:20. Condition at departure: improved and stable. No learning barriers present. Discharge instructions provided and reviewed with the patient. Reviewed medication(s) (tylenol or motrin for pain, take home meds as directed). Reviewed referrals (given detox information). Patient verbalized understanding. Written instructions provided in Micronesian. The patient was discharged home and accompanied by sewing supervisor. She left the Emergency Department ambulatory and via private vehicle. [employer] driving. --12:48 Laure Briggs R.N. 12:20 03/10/17. BP: 140/80. HR: 88. RR: 20. O2 saturation: 97%. Temp: deferred. Pain level now: 0/10. --12:48 Laure Briggs R.N. Locked/Released at 03/10/2017 12:49 by Laure Briggs R.N.
--- NOTE | 2017-03-10 12:16 | ED ORDER SUMMARY ---
..... Patient: MITCHELL DUARTE OrderSheet [facility] VisitID: [id number] [address] [place] [address] 32y, F Registration Date/Time: 03/10/2017 ORDER SHEET Weight: 99.7 kg (stated) Allergies: None GENERAL ORDERS: MEDICATION ORDERS: Zofran ODT PO 4 mg (NOW) (10:47 03/10/2017 DDean R.N. per protocol) (10:48 DDean R.N.) Ativan PO 0.5 mg (HIGH ALERT MEDICATION, NOW) (11:12 03/10/2017 DDean R.N. verbal order read back to Micheal SUTHERLAND) (11:13 DDean R.N.) IV FLUIDS: ORDER SHEET NOTES: [Electronically signed by Lona Zelaya P.A.-C (12:29 03/10/2017)] [Electronically signed by Laure Briggs R.N. (12:49 03/10/2017)] [Electronically locked/signed by Laure Briggs R.N. (12:49 03/10/2017)]
--- NOTE | 2017-03-10 12:49 | ED MAR SUMMARY ---
..... Medication Administration Record [facility] [address] [place] [address] Patient: MITCHELL DUARTE Visit ID: [id number] 32y, F Weight: 99.7 kg Height/Length: 69 in BMI: 32.5 ALLERGIES: None Given 10:47 03/10/2017 Laure Briggs RConchaN. Medication Administered: ZOFRAN ODT [PO] (ONDANSETRON), Dose: 4 mg PO. Medication Ordered: Zofran ODT PO 4 mg (NOW). Given 11:13 03/10/2017 Laure Briggs, RConchaN. Medication Administered: ATIVAN [PO] (LORAZEPAM), Dose: 0.5 mg Tablets PO. Medication Ordered: Ativan PO 0.5 mg (HIGH ALERT MEDICATION, NOW).
--- NOTE | 2017-03-10 12:49 | ED DISCHARGE INSTRUCTIONS ---
Patient: MITCHELL DUARTE General Instructions [facility] VisitID: [id number] [place] [address] 32y, F Registration Date/Time: 03/10/2017 Substance dependence problems: dependence on alcohol. Anxiety reaction. INSTRUCTIONS (take your meds as prescribed, alcohol is a depressant, and a substance that appears to be of abuse to you. Please strongly consider therapy/ : please call for help). OTC Medications: Take OTC medications according to label instructions. Available over the counter. Acetaminophen (available over the counter): take according to label instructions. Motrin (available over the counter): take according to label instructions. ADDITIONAL INFORMATION Stress Reaction Anxiety is the feeling we all get when we think something bad might happen. It is a normal response to stress and usually causes only a mild reaction. When anxiety becomes more severe, emotions may interfere with daily life. In some cases, you may not even be aware of what it is youre anxious about! During an anxiety reaction, you may feel like you are helpless, nervous, depressed or irritable. Your body may show signs of anxiety in many ways. You may experience dry mouth, shakiness, dizziness, weakness, trouble breathing, chest pressure, headache, nausea, diarrhea, tiredness, inability to sleep or sexual problems. Home Care: 1) Try to locate the sources of stress in your life. They may not be obvious! These may include: -- Daily hassles of life which pile up (traffic jams, missed appointments, car troubles, etc.) -- Major life changes, both good (new baby, job promotion) and bad (loss of job, loss of loved one) -- Overload: feeling that you have too many responsibilities and can't take care of all of them at once -- Feeling helpless, feeling that your problems are beyond what youre able to solve 2) Notice how your body reacts to stress. Learn to listen to your body signals. This will help you take action before the stress becomes severe. 3) When you can, do something about the source of your stress. (Avoid hassles, limit the amount of change that happens in your life at one time and take a break when you feel overloaded). 4) Unfortunately, many stressful situations cannot be avoided. It is necessary to learn HOW TO MANAGE STRESS better. There are many proven methods that will reduce your anxiety. These include simple things like exercise, good nutrition and adequate rest. Also, there are certain techniques that are helpful: relaxation and breathing exercises, visualization, biofeedback and meditation. For more information about this, consult your doctor or go to a local bookstore and review the many books and tapes available on this subject. Follow Up If you feel that your anxiety is not responding to self-help measures, contact your doctor or make an appointment with a counselor. Get Prompt Medical Attention if any of the following occur: -- Your symptoms get worse -- Chest pain or trouble breathing -- Severe headache not relieved by rest and mild pain reliever -- Rapid or irregular heartbeat, fainting Panic Attack A panic attack is an extreme fear reaction that comes on for no apparent reason. Symptoms may include pounding or racing heartbeat, shortness of breath, dizziness, weakness and sweating. There is usually a fear that something terrible will happen or that you may . The attack may last a few minutes up to a few hours. Between attacks things will seem quite normal. This condition has a psychological cause and can be treated with the help of a therapist or psychiatrist. Medication is often used and can be very helpful for this problem. Home Care: Try to identify the sources of stress in your life. It may not be obvious! These may include: Daily hassles of life which pile up (traffic jams, missed appointments, car troubles, etc.). Major life changes, both good (new baby, job promotion) and bad (loss of job, loss of loved one). Overload: feeling that you have too many responsibilities and can't take care of everything at once. Helplessness: feeling like your problems are too much for you to handle. Notice how your body reacts to stress. Learn to listen to your body signals so that you can take action before the stress becomes severe. When possible, AVOID or REDUCE THE CAUSE OF STRESS. Avoid hassles, limit the amount of change that is happening in your life at one time or take a break when you feel overloaded. Unfortunately, many stressful situations cannot be avoided. Therefore, it is necessary to LEARN HOW TO MANAGE STRESS better. There are many proven methods that work and will reduce your anxiety. These include simple things like exercise, good nutrition and adequate rest. Also, there are certain techniques that are helpful: relaxation and breathing exercises, visualization, biofeedback, meditation or simply taking some time-out to clear your mind. For more information about this, consult your doctor or go to a local bookstore and review the many books and tapes available on this subject. Follow Up with your doctor or a therapist as advised. Get Prompt Medical Attention if any of the following occur: Worsening of your symptoms to the point of feeling [id number] A change in the type of pain: if it feels different, becomes more severe, lasts longer, or begins to spread into your shoulder, arm, neck, jaw or back Shortness of breath or increased pain with breathing Increasing feeling of weakness or dizziness Fainting Cough with dark colored sputum (phlegm) or blood Fever of 100.4F (38C) or higher, or as directed by your healthcare provider Swelling, pain or redness in one leg You have been given the following additional information: Anxiety Reaction Panic Attack (Electronically signed by Lona Zelaya P.A.-C 03/10/2017 12:29)
--- NOTE | 2017-03-10 12:49 | ED MED RECONCILIATION SUMMARY ---
Patient: MITCHELL DUARTE Medication Reconciliation Report [facility] VisitID: [id number] [place] [address] 32y, F Registration Date/Time: 03/10/2017 Weight: 99.7 kg Height/Length: 69 in. BMI: 32.5 ALLERGIES: None The patient's Home Medications are listed below: THE FOLLOWING MEDICATIONS NEED TO BE RECONCILED: Effexor XR Oral The source(s) of the original Home Medication information: Not obtained. The following Medications were given to the patient in the Emergency Department: Zofran ODT [PO] PO 4 mg, administered: 03/10/2017 10:47:00 AM Ativan [PO] PO 0.5 mg, administered: 03/10/2017 11:13:00 AM The following Medications were prescribed to the patient: Take OTC medications according to label instructions. Available over the counter. -- Lona Zelaya, P.A.-C Acetaminophen (available over the counter): take according to label instructions. -- Lona Zelaya, P.A.-C Motrin (available over the counter): take according to label instructions. -- Lona Zelaya, P.A.-C
--- NOTE | 2017-03-10 12:49 | ED MED RECONCILIATION SUMMARY ---
Patient: MITCHELL DUARTE Medication Reconciliation Report [facility] VisitID: [id number] [place] [address] 32y, F Registration Date/Time: 03/10/2017 Weight: 99.7 kg Height/Length: 69 in. BMI: 32.5 ALLERGIES: None The patient's Home Medications are listed below: THE FOLLOWING MEDICATIONS NEED TO BE RECONCILED: Effexor XR Oral The source(s) of the original Home Medication information: Not obtained. The following Medications were given to the patient in the Emergency Department: Zofran ODT [PO] PO 4 mg, administered: 03/10/2017 10:47:00 AM Ativan [PO] PO 0.5 mg, administered: 03/10/2017 11:13:00 AM The following Medications were prescribed to the patient: Take OTC medications according to label instructions. Available over the counter. -- Lona Zelaya, P.A.-C Acetaminophen (available over the counter): take according to label instructions. -- Lona Zelaya, P.A.-C Motrin (available over the counter): take according to label instructions. -- Lona Zelaya, P.A.-C
--- NOTE | 2017-03-10 12:49 | ED MAR SUMMARY ---
..... Medication Administration Record [facility] [address] [place] [address] Patient: MITCHELL DUARTE Visit ID: [id number] 32y, F Weight: 99.7 kg Height/Length: 69 in BMI: 32.5 ALLERGIES: None Given 10:47 03/10/2017 Laure Briggs RConchaN. Medication Administered: ZOFRAN ODT [PO] (ONDANSETRON), Dose: 4 mg PO. Medication Ordered: Zofran ODT PO 4 mg (NOW). Given 11:13 03/10/2017 Laure Briggs, RConchaN. Medication Administered: ATIVAN [PO] (LORAZEPAM), Dose: 0.5 mg Tablets PO. Medication Ordered: Ativan PO 0.5 mg (HIGH ALERT MEDICATION, NOW).
== END 2017-03-10 12:20 | disposition home or self-care (01) ==
LOC: ED SRH 10:37
DX: F41.1 Generalized anxiety disorder (principal); F10.20 Alcohol dependence, uncomplicated; Z72.0 Tobacco use